=== PATIENT | male | born 1985 | race Hispanic/Latino ===

== ENCOUNTER 2020-07-12 13:42 | Emergency (ER) | payer SELFPAY ==
[2020-07-12 14:36] LABS: #Eosinphils 0.1 thou/uL (0.0-0.7); #Lymphocytes 2.5 thou/uL (1.20-3.40); #Monocytes 0.5 thou/uL (0.11-0.59); #Neutrophils 3.1 thou/uL (1.40-6.50); %Basophils 0.1 % (0.0-1.0); %Eosinophils 1.6 % (0.0-10.0); %Lymphocytes 39.9 % (21.0-51.0); %Monocytes 7.8 % (0.0-10.0); %Neutrophils 50.6 % (42.0-75.0); Hemoglobin 14.7 g/dL (14.0-18.0); Mean Corpuscular HGB CONC 34.9 g/dL (32.0-36.0); Mean Corpuscular Hemoglobin 30.3 pg (27.0-31.0); Mean Corpuscular Volume 86.7 fL (78.0-98.0); Mean Platelet Volume 7.8 fL (7.4-10.4); Platelet Count 221 thou/uL (130-400); RBC Distribution Width 10.7 % (11.5-14.5); Red Blood Cell (RBC) Count 4.87 mill/uL (4.70-6.10); White Blood Cell (WBC) Count 6.2 thou/uL (4.8-10.8)
[2020-07-12 14:38] LABS: MONO NEGATIVE CONTROL ZONE White (Negative) (White); MONO POSITIVE CONTROL Pink Line (Positive) (PINK/RED); Mononucleosis NEGATIVE (NEGATIVE)
[2020-07-12 14:48] LABS: Analyzer IN Cardio ER; Base Excess (BEa) -1.8 mEq/L (-2.0 to +3.0); Calcium, Ionized (arterial) 1.18 mmol/L (1.12-1.30); Hemoglobin (Hb) 15.3 g/dL (14.0-18.0); O2 Tension (PaO2), arterial 159.9 mmHg (80.0-100.0); Potassium - ABG Lab 3.75 mmol/L (3.70-5.30); pH, Arterial 7.45 (7.35-7.45)
[2020-07-12 14:50] LABS: Puncture Site RBA
[2020-07-12 14:56] LABS: CK (CPK) 401 U/L (30-200); CRP (Inflammatory) Less than 0.50 mg/dL (= or < 0.5)
[2020-07-12 14:57] LABS: ALT (SGPT) 24 U/L (8-55); AST (SGOT) 22 U/L (5-34); Albumin 4.5 g/dL (3.5-5.0); Alkaline Phosphatase 79 U/L (40-110); Anion Gap 11 mmol/L (10-20); BUN (Urea Nitrogen) 12 mg/dL (8.9-20.6); Bilirubin, Total 0.3 mg/dL (0.2-1.2); Calc. Creatinine Clearance 0 mL/min (70-130); Calcium 9.6 mg/dL (7.8-10.44); Carbon Dioxide 25 mmol/L (22-29); Chloride 105 mmol/L (98-107); Globulin 2.7 g/dL (2.4-3.5); Glucose 89 mg/dL (70-105); Potassium 3.9 mmol/L (3.5-5.1); Protein, Total 7.2 g/dL (6.0-8.3); Sodium 137 mmol/L (136-145)
[2020-07-12] MEDS ORDERED: Metoclopramide HCl 10 MG TAB ONE (15:09)
[2020-07-12] MEDS ORDERED: diphenhydrAMINE 25 MG CAP ONE (15:09)
== END 2020-07-12 15:59 | disposition home or self-care (01) ==
LOC: ERS 13:42
DX: R53.83 Other fatigue (principal); R53.1 Weakness
CPT/HCPCS: 36415; 36600; 70450; 71045; 80053; 82550; 82805; 84443; 84484; 85025; 85652; 86140; 86308; 93005; Q0163